=== PATIENT | female | born 1960 | race Caucasian/White ===

== ENCOUNTER 2022-06-08 12:58 | Day surgery (SDC) | payer OTHER, SELFPAY ==
--- NOTE | 2022-06-08 07:48 | W.ANESPRE ---
General Info Date of Service Date Performed: 06/08/22 Height: 5 ft Weight: 72.575 kg Body Mass Index (BMI): 31.2 Surgical Procedure: Operation Date: 06/08/22 17:40 Proposed Procedure Side Surgeon p Cataract Extraction with IOL Implant Right Álvaro Davenport MD Meds Allergies and Home Medications Allergies Allergy/AdvReac Type Severity Reaction Status Date / Time clindamycin Allergy Severe Hives Unverified 06/08/22 14:00 Penicillins Allergy Severe Anaphylaxis Unverified 06/08/22 14:00 sulfamethoxazole Allergy Intermediate Skin Rash Unverified 06/08/22 14:00 [From Bactrim] trimethoprim [From Bactrim] Allergy Intermediate Skin Rash Unverified 06/08/22 14:00 atorvastatin AdvReac Intermediate muscle Unverified 06/08/22 14:00 cramps Home Medication Medication Instructions Recorded Lactobacillus acidophilus 1 cap PO DAILY 06/04/22 cholecalciferol (vitamin D3) 50 50 mcg PO DAILY 06/04/22 mcg (2,000 unit) capsule (Vitamin D3) cyanocobalamin (vitamin B-12) 5,000 mcg PO DAILY 06/04/22 5,000 mcg sublingual tablet (Vitamin B-12) cyclobenzaprine 5 mg tablet 5 mg PO BID PRN 06/04/22 diclofenac sodium 1 % topical gel 1 applic topical DIRECTED 06/04/22 estradiol 0.01% (0.1 mg/gram) 1 g vaginal DIRECTED 06/04/22 vaginal cream levothyroxine 100 mcg tablet 100 mcg PO DAILY 06/04/22 metronidazole 0.75 % topical cream 1 applic topical BID 06/04/22 multivit-iron 18 mg-folic acid 400 1 tab PO DAILY 06/04/22 mcg-calcium 500 mg-minerals tablet (Women's One Daily) rosuvastatin 10 mg tablet 10 mg PO DAILY 06/04/22 aspirin 81 mg capsule,delayed 81 mg PO DIRECTED 06/05/22 release clobetasol 0.05 % topical ointment 1 applic topical DIRECTED 06/05/22 acetaminophen 650 mg tablet 650 mg PO PRN PRN 06/08/22 Current Visit Medications: Current Medications Generic Name Dose Route Start Last Admin Trade Name Freq PRN Reason Stop Dose Admin Acetaminophen 1,000 mg 06/08/22 06:00 Acetaminophen 500 Mg Tab PO Q4H PRN PRN Miscellaneous Medication 0 ml 06/08/22 06:00 Prednisolone 1%, Moxifloxacin 0.5%, Nepafenac 0.1% 5ml Btl OD DIRECTED [facility] Miscellaneous Medication 0 ml 06/08/22 06:00 Tropicam./Phenyleph. (1/2.5%) 5 Ml Btl OD DIRECTED [facility] Tetracaine HCl 0 ml 06/08/22 06:00 Tetracaine 0.5% 4 Ml Btl OD DIRECTED [facility] PFSH Medical History Medical History (Updated 06/08/22 @ 14:00 by [employer]) ASCVD (arteriosclerotic cardiovascular disease) without angina Bicipital tendinitis of left shoulder CAD (coronary artery disease) Per pt. stated she was worked up and everything was WNL per pt. 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 Hx of section Tobacco Smoking/Tobacco Use Status: Former Tobacco Use Alcohol Alcohol Intake: current Alcohol intake frequency: a few times a week Alcohol type: wine Substance Use Substance use: Never Substance use type: does not use Vital Signs and Lab Results Lab Results Blood Type / Crossmatch: No Data to Display Complete Blood Count: No Data to Display Complete Metabolic Panel: No Data to Display Liver Function Panel: No Data to Display Coagulation Panel: No Data to Display Cardiac Panel: No Data to Display Arterial Blood Gas: No Data to Display Venous Blood Gas: No Data to Display Pancreas Panel: No Data to Display Thyroid Panel: No Data to Display Infectious Disease: No Data to Display Blood Cultures: No Data to Display Toxicology Panel: No Data to Display Anesthesia Assessment and Plan Anesthesia History Personal History: No History of Anesthesia Complications Family History: No Family History of Anesthesia Complications Exercise Tolerance Exercise Tolerance: Metabolic Equivalents>4 Cardiac & Pulmonary Exam Cardiac Exam: Normal S1/S2 Heart Sounds Pulmonary Exam: Clear Bilateral Breath Sounds Implantable Cardiac Device Does patient have a Pacemaker or an ICD?: No Airway Exam Known Difficult Airway: No Mallampati Class: 3 Mouth Opening: Normal (> 3cm) Thyromental Distance: Greater than 3 cm Facial Hair: Full [place] Neck Range of Motion: Full ROM Neck Circumference: Normal Teeth Condition: Removable Dentures/Plates Upper, Removable Dentures/Plates Lower and Edentulous ASA Classification ASA Score: ASA 2 Emergency Case?: No NPO Status NPO Status: NPO Clears >2 hours, Solids >8 hours Anesthesia Plan Resuscitation Status: Full Code Anesthesia Technique: MAC Anesthesia Airway Planned: Natural Airway Monitors Used: Standard Monitors Preoperative Comments:: 61 yo female for cataract removal. Sig PMHx: nonobstructive CAD (negative stress and coronary calcium scan), hypothyriod, ERIS, former smoker, occ etoh.
[2022-06-08 13:45] VITALS: BP 130/80; PULSE 74; RESP 16; TEMP 36.8; O2SAT 98
[2022-06-08] MEDS: Tropicam./Phenyleph. (1/2.5%) 5 ML BTL OD ×3 (13:56→14:08)
[2022-06-08 14:22] VITALS: BMI 31.2
[2022-06-08] MEDS: Tetracaine 0.5% 4 ML BTL OD (14:41)
[2022-06-08] MEDS: Lidocaine 2% Jelly 6 ML SYR (14:41)
[2022-06-08] MEDS: Duovisc Viscoelastic System EACH 1 EACH (14:52)
[2022-06-08] MEDS: Balanced Salt Soln.-PLUS 500 ML BAG (14:52)
[2022-06-08] MEDS: Povidone-Iodine Ophth 30 ML BTL (14:54)
[2022-06-08 15:15] VITALS: BP 138/81; PULSE 79; RESP 16; TEMP 36.4; O2SAT 97
--- NOTE | 2022-06-08 15:18 | W.PM.DSUDISC ---
Discharge Plan Disposition Patient Disposition: HOME Condition: Good Discharge Details Attending Provider: Álvaro Davenport Primary Care Provider: Hemanth Garcia [place] Meds and New Rx's Prescriptions: No Action levothyroxine 100 mcg Tablet 100 mcg PO DAILY metronidazole 0.75 % Cream 1 applic TOPICAL BID estradiol 0.01 % (0.1 mg/gram) Cream 1 g VAGINAL DIRECTED Lactobacillus acidophilus Capsule 1 cap PO DAILY cyclobenzaprine 5 mg Tablet 5 mg PO BID PRN rosuvastatin 10 mg Tablet 10 mg PO DAILY diclofenac sodium 1 % Gel 1 applic TOPICAL DIRECTED cholecalciferol (vitamin D3) [Vitamin D3] 50 mcg (2,000 unit) Capsule 50 mcg PO DAILY cyanocobalamin (vitamin B-12) [Vitamin B-12] 5,000 mcg Tablet, Sublingual 5,000 mcg PO DAILY Women's One Daily 18 mg iron-400 mcg-500 mg Ca Tablet 1 tab PO DAILY aspirin 81 mg Capsule,Delayed Release(Dr/Ec) 81 mg PO DIRECTED clobetasol 0.05 % Ointment 1 applic TOPICAL DIRECTED acetaminophen 650 mg Tablet 650 mg PO PRN PRN Discharge Instructions Stand Alone Forms: Post-op Topical Cataract, Cielo Polanco (DSU) Discharge Orders Discharge Orders: Discharge Order (Routine); Ordered 06/08/22 Ordered By: Álvaro Davenport DS: Diagnosis Discharge Diagnosis (1) Nuclear sclerotic cataract of right eye: Status: Resolved
--- NOTE | 2022-06-08 15:19 | W.PM.OP ---
Date of service: 06/08/22 Time of Service: 15:19 Operative Note Operative Note DATE OF PROCEDURE: 06/08/22 PRE-OP DIAGNOSIS: Nuclear cataract, right eye POST-OP DIAGNOSIS: same PROCEDURE: Cataract extraction using phacoemulsification with intraocular lens implant, right eye SURGEON: Álvaro Davenport ANESTHESIA TYPE: Local By Surgeon and MAC Refer to Anesthesia Record ESTIMATED BLOOD LOSS: 0 PATHOLOGY: none sent COMPLICATIONS: None Patient was transported to: same day Patient's condition: stable Implants: Jose & Jose/EUGENIO Tecnis [id number] Indications: Progressive visual loss due to cataract, right eye Procedure Description: CATARACT SURGERY OPERATIVE REPORT PREOPERATIVE DIAGNOSIS: 1. Nuclear cataract, right eye POSTOPERATIVE DIAGNOSIS: Same OPERATION: 1. Cataract extraction using phacoemulsification with posterior chamber intraocular lens implant, right eye. IOL: IOL Truck Shop Supervisor/Model: Jose & Jose / EUGENIO Tecnis [id number] IOL Power: + 18.0 diopters IOL Serial Number: [id number] Optic Diameter: 6.0mm Haptic/Overall Diameter: 13.0mm PHACO INFO: CurlyNovel Therapeutic Technologieson Vision System with OZil and Active Fluidics Cumulative Dispersed Energy (CDE): 14.76 seconds SURGEON: Álvaro Davenport MD, MARRY ANESTHESIA: Monitored [facility] (MAC), with local sub-tenon's anesthetic infiltration COMPLICATIONS: None SPECIMENS: None INDICATIONS FOR PROCEDURE: The patient is a 61-year-old lady with history of diminished visual acuity and her right eye secondary to the development of nuclear cataract. The option of cataract surgery was offered to the patient and she wished to proceed. PROCEDURE: The correct surgical eye was identified and marked as the right eye and the pupil was dilated in the preoperative area using mydriatics and cycloplegics. The dilated pupil size was 7.0 mm. The patient elected to proceed without oral sedation. The patient was brought to the operating room where cardiopulmonary monitoring was instituted and surgical time-out was performed, confirming the correct operative eye and IOL power. Topical anesthesia was administered and ophthalmic povidone-iodine 5% was instilled into the conjunctival fornices. Lidocaine gel was applied to the cornea and the latonya-ocular area was prepped with Betadine 10% solution and draped in the usual sterile fashion for intraocular surgery, including an aperture drape. A Tegaderm transparent film dressing was cut in half and used to cover the lashes and lid margins. Care was taken to sequester the lashes and lid margins under the Tegaderm dressing. A lid speculum was placed between the lids of the operative eye and the Curly LuxOR Revalia operating microscope was maneuvered into position. Jacque scissors were then used to make a conjunctival buttonhole approximately 6mm posterior to the limbus in the inferonasal quadrant. Blunt dissection was carried out to expose bare sclera, and a blunt-tipped sub-tenon?s anesthesia cannula was introduced and passed posteriorly along the globe where non-preserved plain lidocaine was injected into posterior sub-Tenon?s space. A sideport knife was used to make a paracentesis port inferotemporally. Intraocular phenylephrine/lidocaine was injected into the anterior chamber. The anterior chamber was filled with viscoelastic. A keratome knife was used to construct a 2-plane near-clear corneal tunnel extending 2.0mm into clear cornea superiortemporally. A flap was raised on the anterior capsule and capsulorhexis forceps were used to complete a continuous curvilinear capsulorhexis of 5.0 mm. Balanced salt solution was then used to perform cortical cleaving hydrodissection and nuclear hydrodelineation until the lens could be freely rotated within the capsular bag. The lens nucleus was then disassembled and removed within the capsular bag and iris plane using phacoemulsification. Residual cortical material was removed using the I/A handpiece. The posterior capsule was carefully polished to remove as much residual lens epithelial cells as safely possible. The capsular bag was then inflated and the anterior chamber deepened with viscoelastic. The lens implant described above was inserted into the capsular bag using the EUGENIO [place] Injector. A Kuglen hook was used to dial the IOL into position. Residual viscoelastic was then removed first from posterior to the IOL, then from the anterior chamber using the I/A handpiece. The lens implant was noted to center nicely within the capsular bag. The incisions were stromally hydrated, and the anterior chamber was reformed using BSS. Then 0.5cc of moxifloxacin 1.0mg/ml were injected into the capsular bag and anterior chamber. The incisions were checked with a Weck spear and found to be secure. Several drops of ophthalmic povidone-iodine 5% were then applied to the eye followed by two drops of Imprimis combination prednisolone/moxifloxacin/nepafenac solution. The drapes were removed and a clear plastic protective eye shield was placed over the eye. The patient was then returned to Same Day Surgery in stable condition.
--- NOTE | 2022-06-08 15:25 | W.ANESPOSTOP ---
Postoperative Evaluation Date, Time and Location Date Performed: 06/08/22 Time Performed: 15:25 Patient Location: Day Surgery Unit Vital Signs Most Recent Imported Vital Signs: Most Recent Vital Signs Temp Pulse Resp BP Pulse Ox 36.4 C L 79 16 138/81 97 06/08/22 15:15 06/08/22 15:15 06/08/22 15:15 06/08/22 15:15 06/08/22 15:15 Pain Score Most Recent Pain Score: Most Recent Pain Score Pain Level 0 06/08/22 15:15 Assessment Mental Status: Awake (Alert & Oriented to Patient Baseline) Airway and Respiratory Function: Patent airway with normal (patient baseline) respiratory exam Cardiovascular Function: Hemodynamically Stable Hydration Status: Adequately Hydrated Nausea & Vomiting: No Nausea or Vomiting Pain: Pt. Denies Any Pain Peripheral Nerve Block: Patient did not receive a nerve block
== END 2022-06-08 15:33 | disposition home or self-care (01) ==
PROVIDERS: PCP Family Medicine; Visit Provider Ophthalmology
PROC: (CPT 66984; principal; 2022-06-08 17:30)
DX: H25.11 Age-related nuclear cataract, right eye (principal)
CPT/HCPCS: 66984; V2632

== ENCOUNTER 2022-06-22 09:19 | Day surgery (SDC) | payer OTHER, SELFPAY ==
[2022-06-22] MEDS: Tropicam./Phenyleph. (1/2.5%) 5 ML BTL ×3 (10:07→10:17)
[2022-06-22 10:09] VITALS: BP 133/82; PULSE 70; RESP 16; TEMP 36.3; O2SAT 99
--- NOTE | 2022-06-22 10:20 | W.ANESPRE ---
General Info Date of Service Date Performed: 06/22/22 Height: 5 ft Weight: 71.9 kg Body Mass Index (BMI): 30.9 Surgical Procedure: Operation Date: 06/22/22 12:40 Proposed Procedure Side Surgeon p Cataract Extraction with IOL Implant Left Álvaro Davenport MD Meds Allergies and Home Medications Allergies Allergy/AdvReac Type Severity Reaction Status Date / Time clindamycin Allergy Severe Hives Unverified 06/22/22 10:01 Penicillins Allergy Severe Anaphylaxis Unverified 06/22/22 10:01 sulfamethoxazole Allergy Intermediate Skin Rash Unverified 06/22/22 10:01 [From Bactrim] trimethoprim [From Bactrim] Allergy Intermediate Skin Rash Unverified 06/22/22 10:01 atorvastatin AdvReac Intermediate muscle Unverified 06/22/22 10:01 cramps Home Medication Medication Instructions Recorded Lactobacillus acidophilus 1 cap PO DAILY 06/04/22 cholecalciferol (vitamin D3) 50 50 mcg PO DAILY 06/04/22 mcg (2,000 unit) capsule (Vitamin D3) cyanocobalamin (vitamin B-12) 5,000 mcg PO DAILY 06/04/22 5,000 mcg sublingual tablet (Vitamin B-12) cyclobenzaprine 5 mg tablet 5 mg PO BID PRN 06/04/22 diclofenac sodium 1 % topical gel 1 applic topical DIRECTED 06/04/22 estradiol 0.01% (0.1 mg/gram) 1 g vaginal DIRECTED 06/04/22 vaginal cream levothyroxine 100 mcg tablet 100 mcg PO DAILY 06/04/22 metronidazole 0.75 % topical cream 1 applic topical BID 06/04/22 multivit-iron 18 mg-folic acid 400 1 tab PO DAILY 06/04/22 mcg-calcium 500 mg-minerals tablet (Women's One Daily) rosuvastatin 10 mg tablet 10 mg PO DAILY 06/04/22 aspirin 81 mg capsule,delayed 81 mg PO DIRECTED 06/05/22 release clobetasol 0.05 % topical ointment 1 applic topical DIRECTED 06/05/22 acetaminophen 650 mg tablet 650 mg PO PRN PRN 06/08/22 [facility] Active Problems Active Problems: Problem Status Onset Code Nuclear sclerotic cataract of left eye H25.12 Nuclear sclerotic cataract of right eye H25.11 Medical History Medical History ASCVD (arteriosclerotic cardiovascular disease) without angina Bicipital tendinitis of left shoulder CAD (coronary artery disease) Per pt. stated she was worked up and everything was WNL per pt. 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 Hx of section Tobacco Smoking/Tobacco Use Status: Former Tobacco Use Alcohol Alcohol Intake: current Alcohol intake frequency: a few times a week Alcohol type: wine Substance Use Substance use: Never Substance use type: does not use Vital Signs and Lab Results Vital Signs Most Recent Vital Signs in EMR: Most Recent Vital Signs Temp Pulse Resp BP Pulse Ox 36.3 C L 70 16 133/82 99 06/22/22 10:09 06/22/22 10:09 06/22/22 10:09 06/22/22 10:09 06/22/22 10:09 Lab Results Blood Type / Crossmatch: No Data to Display Complete Blood Count: No Data to Display Complete Metabolic Panel: No Data to Display Liver Function Panel: No Data to Display Coagulation Panel: No Data to Display Cardiac Panel: No Data to Display Arterial Blood Gas: No Data to Display Venous Blood Gas: No Data to Display Pancreas Panel: No Data to Display Thyroid Panel: No Data to Display Infectious Disease: No Data to Display Blood Cultures: No Data to Display Toxicology Panel: No Data to Display Anesthesia Assessment and Plan Anesthesia History Personal History: No History of Anesthesia Complications Family History: No Family History of Anesthesia Complications Exercise Tolerance Exercise Tolerance: Metabolic Equivalents>4 Pertinent Negatives Pertinent Negatives: No Symptoms of GERD Cardiac & Pulmonary Exam Cardiac Exam: Normal S1/S2 Heart Sounds Pulmonary Exam: Clear Bilateral Breath Sounds Implantable Cardiac Device Does patient have a Pacemaker or an ICD?: No Airway Exam Known Difficult Airway: No Mallampati Class: 3 Mouth Opening: Normal (> 3cm) Thyromental Distance: Greater than 3 cm Neck Range of Motion: Full ROM Neck Circumference: Normal Teeth Condition: Removable Dentures/Plates Upper, Removable Dentures/Plates Lower and Edentulous ASA Classification ASA Score: ASA 2 Emergency Case?: No NPO Status NPO Status: NPO Clears >2 hours, Solids >8 hours Anesthesia Plan Resuscitation Status: Full Code Anesthesia Technique: MAC Anesthesia Airway Planned: Natural Airway Monitors Used: Standard Monitors
[2022-06-22 10:21] VITALS: BMI 30.9
[2022-06-22] MEDS: Balanced Salt Soln.-PLUS 500 ML BAG (11:28)
[2022-06-22] MEDS: Tetracaine 0.5% 4 ML BTL (11:28)
[2022-06-22] MEDS: Duovisc Viscoelastic System EACH 1 EACH (11:28)
[2022-06-22] MEDS: Lidocaine 2% Jelly 6 ML SYR (11:29)
[2022-06-22] MEDS: Povidone-Iodine Ophth 30 ML BTL (11:31)
[2022-06-22 11:48] VITALS: BP 135/83; PULSE 69; RESP 16; TEMP 36.3; O2SAT 98
--- NOTE | 2022-06-22 11:48 | W.PM.DSUDISC ---
Date of service: 06/22/22 Time of Service: 11:48 Discharge Plan Disposition Patient Disposition: HOME Condition: Good Discharge Details Attending Provider: Álvaro Davenport Primary Care Provider: Hemanht Garcia [place] Meds and New Rx's Prescriptions: No Action levothyroxine 100 mcg Tablet 100 mcg PO DAILY metronidazole 0.75 % Cream 1 applic TOPICAL BID estradiol 0.01 % (0.1 mg/gram) Cream 1 g VAGINAL DIRECTED Lactobacillus acidophilus Capsule 1 cap PO DAILY cyclobenzaprine 5 mg Tablet 5 mg PO BID PRN rosuvastatin 10 mg Tablet 10 mg PO DAILY diclofenac sodium 1 % Gel 1 applic TOPICAL DIRECTED cholecalciferol (vitamin D3) [Vitamin D3] 50 mcg (2,000 unit) Capsule 50 mcg PO DAILY cyanocobalamin (vitamin B-12) [Vitamin B-12] 5,000 mcg Tablet, Sublingual 5,000 mcg PO DAILY Women's One Daily 18 mg iron-400 mcg-500 mg Ca Tablet 1 tab PO DAILY aspirin 81 mg Capsule,Delayed Release(Dr/Ec) 81 mg PO DIRECTED clobetasol 0.05 % Ointment 1 applic TOPICAL DIRECTED acetaminophen 650 mg Tablet 650 mg PO PRN PRN Discharge Instructions Stand Alone Forms: Post-op Topical Cataract, Cielo Polanco (DSU) Discharge Orders Discharge Orders: Discharge Order (Routine); Ordered 06/22/22 Ordered By: Álvaro Davenport DS: Diagnosis Discharge Diagnosis (1) Nuclear sclerotic cataract of left eye: Status: Resolved
--- NOTE | 2022-06-22 11:49 | ROE_ITS ---
Date of service: 06/22/22 Time of Service: 11:49 Operative Note Operative Note DATE OF PROCEDURE: 06/22/22 PRE-OP DIAGNOSIS: Nuclear cataract, left eye POST-OP DIAGNOSIS: same PROCEDURE: Cataract extraction using phacoemulsification with intraocular lens implant, left eye SURGEON: Álvaro Davenport ANESTHESIA TYPE: Local By Surgeon and MAC Refer to Anesthesia Record PATHOLOGY: none sent COMPLICATIONS: None Patient was transported to: same day Patient's condition: stable Implants: Jose and Jose / [employer] Tecnis [id number] Indications: Progressive decreased vision due to cataract, left eye Procedure Description: CATARACT SURGERY OPERATIVE REPORT PREOPERATIVE DIAGNOSIS: 1. Nuclear cataract, left eye POSTOPERATIVE DIAGNOSIS: Same OPERATION: 1. Cataract extraction using phacoemulsification with posterior chamber intraocular lens implant, left eye. IOL: IOL Game Developer/Model: Jose & Jose / EUGENIO Tecnis [id number] IOL Power: + 18.5 diopters IOL Serial Number: [id number] Optic Diameter: 6.0 mm Haptic/Overall Diameter: 13.0 mm PHACO INFO: Curly [employer] Vision System with OZil and Active Fluidics Cumulative Dispersed Energy (CDE): 11.03 seconds SURGEON: Álvaro Davenport MD, MARRY ANESTHESIA: Monitored [facility] (MAC), with local sub-tenon's anesthetic infiltration COMPLICATIONS: None SPECIMENS: None INDICATIONS FOR PROCEDURE: The patient is a 61-year-old lady with history of diminished visual acuity in both eyes secondary to development of bilateral nuclear cataract. She has already undergone cataract surgery in her right eye and is doing well postoperatively. She now presents for cataract surgery in the left eye. PROCEDURE: The correct surgical eye was identified and marked as the left eye and the pupil was dilated in the preoperative area using mydriatics and cycloplegics. The dilated pupil size was 7.0 mm. The patient elected to proceed without oral sedation. The patient was brought to the operating room where cardiopulmonary monitoring was instituted and surgical time-out was performed, confirming the correct operative eye and IOL power. Topical anesthesia was administered and ophthalmic povidone-iodine 5% was instilled into the conjunctival fornices. Lidocaine gel was applied to the cornea and the latonya-ocular area was prepped with Betadine 10% solution and draped in the usual sterile fashion for intraocular surgery, including an aperture drape. A Tegaderm transparent film dressing was cut in half and used to cover the lashes and lid margins. Care was taken to sequester the lashes and lid margins under the Tegaderm dressing. A lid speculum was placed between the lids of the operative eye and the Curly LuxOR Revalia operating microscope was maneuvered into position. Jacque scissors were then used to make a conjunctival buttonhole approximately 6mm posterior to the limbus in the inferonasal quadrant. Blunt dissection was carried out to expose bare sclera, and a blunt-tipped sub-tenon?s anesthesia cannula was introduced and passed posteriorly along the globe where non- preserved plain lidocaine was injected into posterior sub-Tenon?s space. A sideport knife was used to make a paracentesis port superiorly/supe riortemporally. Intraocular phenylephrine/lidocaine was injected int the anterior chamber.. The anterior chamber was filled with viscoelastic. A keratome knife was used to construct a 2-plane near-clear corneal tunnel extending 2.0mm into clear cornea temporally. A flap was raised on the anterior capsule and capsulorhexis forceps were used to complete a continuous curvilinear capsulorhexis of 5.5 mm. Balanced salt solution was then used to perform cortical cleaving hydrodissection and nuclear hydrodelineation until the lens could be freely rotated within the capsular bag. The lens nucleus was then disassembled and removed within the capsular bag and iris plane using phacoemulsification. Residual cortical material was removed using the 45-degree angled silicone I/A tip with 0.3mm port. The posterior capsule was carefully polished to remove as much residual lens epithelial cells as safely possible. The capsular bag was then inflated and the anterior chamber deepened with viscoelastic. The lens implant described above was inserted into the capsular bag using the EUGENIO [place] Injector. A Kuglen hook was used to dial the IOL into position. Residual viscoelastic was then removed first from posterior to the IOL, then from the anterior chamber using the I/A handpiece. The lens implant was noted to center nicely within the capsular bag. The incisions were stromally hydrated, and the anterior chamber was reformed using BSS. Then 0.5cc of moxifloxacin 1.0mg/ml were injected into the capsular bag and anterior chamber. The incisions were checked with a Weck spear and found to be secure. Several drops of ophthalmic povidone-iodine 5% were then applied to the eye followed by two drops of Imprimis combination prednisolone/moxifloxacin/nepafenac solution. The drapes were removed and a clear plastic protective eye shield was placed over the eye. The patient was then returned to Same Day Surgery in stable condition.
--- NOTE | 2022-06-22 12:03 | W.ANESPOSTOP ---
Postoperative Evaluation Date, Time and Location Date Performed: 06/22/22 Time Performed: 12:03 Patient Location: Day Surgery Unit Vital Signs Most Recent Imported Vital Signs: Most Recent Vital Signs Temp Pulse Resp BP Pulse Ox 36.3 C L 69 16 135/83 98 06/22/22 11:48 06/22/22 11:48 06/22/22 11:48 06/22/22 11:48 06/22/22 11:48 Pain Score Most Recent Pain Score: Most Recent Pain Score Pain Level 0 06/22/22 11:48 Assessment Mental Status: Awake (Alert & Oriented to Patient Baseline) Airway and Respiratory Function: Patent airway with normal (patient baseline) respiratory exam Cardiovascular Function: Hemodynamically Stable Hydration Status: Adequately Hydrated Nausea & Vomiting: No Nausea or Vomiting Pain: Pt. Denies Any Pain Peripheral Nerve Block: Patient did not receive a nerve block
== END 2022-06-22 12:07 | disposition home or self-care (01) ==
PROVIDERS: PCP Family Medicine; Visit Provider Ophthalmology
PROC: (CPT 66984; principal; 2022-06-22 12:30)
DX: H25.12 Age-related nuclear cataract, left eye (principal)
CPT/HCPCS: 66984; V2632